=== PATIENT | male | born 1935 | race Caucasian/White ===

== ENCOUNTER 2022-03-02 16:39 | Emergency (ER) | payer MEDICARE, BC ==
[2022-03-02] MEDS ORDERED: Sodium Chloride 0.9% 500 ML IV ONE (17:01)
== END 2022-03-02 18:20 | disposition home or self-care (01) ==
LOC: LB.ED 16:39
DX: R42 Dizziness and giddiness (principal); E86.0 Dehydration; E11.9 Type 2 diabetes mellitus without complications
CPT/HCPCS: 36415; 80053; 82947; 85025; 96360; 99281; 99284-25; J7040